=== PATIENT | female | born 1975 | race Caucasian/White ===

== ENCOUNTER 2016-12-25 17:42 | Emergency (ER) | payer OTHER ==
[~2016-12-25] VITALS: Ht 162.6 cm; Wt 70.3 kg
[2016-12-25 18:18] VITALS: BP 129/78
--- NOTE | 2016-12-25 18:50 | NUR ---
NO ANSWER OUT IN ER LOBBY OR RESTROOM
--- NOTE | 2016-12-25 18:50 | NUR ---
PATIENT LEFT WITHOUT BEING SEEN BY DR. DAILY. NO FURTHER CARE PROVIDED FOR PATIENT.
== END 2016-12-25 18:50 | disposition left against medical advice (07) ==
LOC: MED 17:42
DX: R21 Rash and other nonspecific skin eruption (principal); Z53.21 Procedure and treatment not carried out due to patient leaving prior to being seen by health care provider; I10 Essential (primary) hypertension; F41.9 Anxiety disorder, unspecified